=== PATIENT | female | born 1965 | race Caucasian/White ===

== ENCOUNTER → 2016-11-01 | Outpatient (CLI) | payer OTHER | LOC: EXRD 09:56 | DX: M54.5 Low back pain (principal); M47.816 Spondylosis without myelopathy or radiculopathy, lumbar region; M85.80 Other specified disorders of bone density and structure, unspecified site | CPT/HCPCS: 72100 ==

== ENCOUNTER → 2016-11-28 | Outpatient (CLI) | payer OTHER | LOC: MAMO 08:30 | DX: Z12.31 Encounter for screening mammogram for malignant neoplasm of breast (principal) | CPT/HCPCS: G0202 ==

== ENCOUNTER → 2021-01-05 | Outpatient (CLI) | payer OTHER ==
[~2021-01-05] MED LIST: B12 ACTIVE1000 MCG PO; CALCIUM500 M1 PO; CYCLOBENZAPRINE10 MG PO; ERYTHROMYCIN O3.5 GM OS; FIBER CAPS PO; HEALTHY HEART1 EACH PO; LEVOTHYROXINE75 MCG PO; MACROBID 100 M100 MG PO; MILLIPRED DP5 MG PO; MIRALAX17 GM PO; NAPROXEN250 MG PO; NORCO 5-325 TA1 EACH PO; OMEPRAZOLE40 MG PO; RITUXIMAB IV; STOOL SOFTENER100 M1 PO; TEMAZEPAM22.5 MG PO; TESSALON PERLE100 MG PO; TURMERIC1 GM PO; VASCEPA1 GM PO; VITAMIN C1000 M2 PO; VITAMIN E PO; WOMEN'S DAILY1 EACH PO; ZETIA10 MG PO; ZITHROMAX250 MG PO
== END ==
LOC: LAB 15:50
DX: E78.5 Hyperlipidemia, unspecified (principal); I10 Essential (primary) hypertension; E03.9 Hypothyroidism, unspecified; E55.9 Vitamin D deficiency, unspecified
CPT/HCPCS: 36415; 80061; 84439; 84443

== ENCOUNTER → 2021-01-18 | Outpatient (CLI) | payer OTHER | LOC: SLEEP 14:37 | DX: G47.19 Other hypersomnia (principal); G47.33 Obstructive sleep apnea (adult) (pediatric) | CPT/HCPCS: 95810 ==

== ENCOUNTER → 2021-05-27 | Outpatient (CLI) | payer MEDICARE | LOC: MAMO 13:30 | DX: Z12.31 Encounter for screening mammogram for malignant neoplasm of breast (principal) | CPT/HCPCS: 77063; 77067 ==

== ENCOUNTER 2021-06-12 18:35 | Emergency (ER) | payer MEDICARE ==
[2021-06-12 19:25] LABS: HEMOGLOBIN 14.9 gm/dl (12.3-15.3); RED BLOOD COUNT 4.79 M/UL (4.00-5.10); WHITE BLOOD COUNT 3.9 K/UL (4.5-11.0)
[2021-06-12 20:01] LABS: BUN/CREATININE RATIO 18 (0-10)
[2021-06-12] MEDS ORDERED: FLORASTOR250 MG PO (22:17)
[2021-06-12] MEDS ORDERED: ZOFRAN ODT 4 MG4 MG SL (22:17)
[2021-06-12] MEDS ORDERED: AUGMENTIN 875-1 EACH PO (22:17)
== END 2021-06-12 22:50 | disposition home or self-care (01) ==
LOC: ER1 18:35
PROVIDERS: Physician Assistant Medical
DX: K52.9 Noninfective gastroenteritis and colitis, unspecified (principal); F17.200 Nicotine dependence, unspecified, uncomplicated; Z20.822 Contact with and (suspected) exposure to COVID-19
CPT/HCPCS: 0240U; 80053; 81001; 83605; 83690; 85025; 87040; 96374; 96375; 99284; J2270; J2405; J7030; Q9967

== ENCOUNTER → 2021-08-10 | Outpatient (CLI) | payer MEDICARE ==
[~2021-08-10] MED LIST changes: +AUGMENTIN 875-1 EACH PO; +FLORASTOR250 MG PO; +ZOFRAN ODT 4 MG4 MG SL
[2021-08-10 16:32] LABS: HEMOGLOBIN 14.4 gm/dl (12.3-15.3); RED BLOOD COUNT 4.78 M/UL (4.00-5.10); WHITE BLOOD COUNT 7.9 K/UL (4.5-11.0)
[2021-08-10 16:42] LABS: URINE CREATININE 39.2 mg/dL; URINE TOTAL PROTEIN < 5 mg/dl
[2021-08-12 08:14] LABS: A/G RATIO 2.2 (1.2-2.2); ALKALINE PHOSPHATASE, S 70 IU/L (44-121); ALT (SGPT) 20 IU/L (0-32); AST (SGOT) 20 IU/L (0-40); BILIRUBIN, TOTAL <0.2 mg/dL (0.0-1.2); BUN 13 mg/dL (6-24); BUN/CREATININE RATIO 18 (9-23); CALCIUM, SERUM 9.6 mg/dL (8.7-10.2); CARBON DIOXIDE, TOTAL 24 mmol/L (20-29); CHLORIDE, SERUM 103 mmol/L (96-106); CREATININE, SERUM 0.73 mg/dL (0.57-1.00); EGFR IF AFRICN AM 106 (>59); EGFR IF NONAFRICN AM 92 (>59); GLOBULIN, TOTAL 2.2 g/dL (1.5-4.5); GLUCOSE, SERUM 79 mg/dL (65-99); POTASSIUM, SERUM 4.6 mmol/L (3.5-5.2); PROTEIN, TOTAL, SERUM 7.1 g/dL (6.0-8.5); SODIUM, SERUM 143 mmol/L (134-144)
[2021-08-12 10:16] LABS: C-REACTIVE PROTEIN, QUANT 3 mg/L (0-10); COMPLEMENT C3, SERUM 142 mg/dL (82-167); COMPLEMENT C4, SERUM 26 mg/dL (12-38); IMMUNOGLOBULIN A, QN, SERUM 129 mg/dL (87-352); IMMUNOGLOBULIN G, QN, SERUM 618 mg/dL (586-1602); IMMUNOGLOBULIN M, QN, SERUM 19 mg/dL (26-217)
== END ==
LOC: LAB 15:14
PROVIDERS: Internal Medicine Rheumatology
DX: R80.9 Proteinuria, unspecified (principal); M32.9 Systemic lupus erythematosus, unspecified; M06.00 Rheumatoid arthritis without rheumatoid factor, unspecified site; Z51.81 Encounter for therapeutic drug level monitoring
CPT/HCPCS: 36415; 80053; 80069; 81001; 82570; 82784; 84100; 84156; 85025; 85652; 86038; 86140; 86160; 86162; 86255

== ENCOUNTER → 2021-12-10 | Outpatient (CLI) | payer MEDICARE ==
[2021-12-10 12:49] LABS: HEMOGLOBIN 14.2 gm/dl (12.3-15.3); RED BLOOD COUNT 4.67 M/UL (4.00-5.10); WHITE BLOOD COUNT 9.2 K/UL (4.5-11.0)
[2021-12-10 15:52] LABS: BUN/CREATININE RATIO 16 (0-10)
[2021-12-11 08:16] LABS: VITAMIN D, 25-HYDROXY 51.3 ng/mL (30.0-100.0)
[2021-12-11 10:16] LABS: MICROALB/CREAT RATIO <10 (0-29)
[2021-12-11 15:16] LABS: DSDNA CRITHIDIA LUCILIAE IFA Negative (Negative)
== END ==
LOC: LAB 11:15
PROVIDERS: Internal Medicine Rheumatology; Nurse Practitioner Family
DX: Z13.1 Encounter for screening for diabetes mellitus (principal); Z00.00 Encounter for general adult medical examination without abnormal findings; M06.00 Rheumatoid arthritis without rheumatoid factor, unspecified site; R80.9 Proteinuria, unspecified; I10 Essential (primary) hypertension; M51.36 Other intervertebral disc degeneration, lumbar region; E78.5 Hyperlipidemia, unspecified; K21.9 Gastro-esophageal reflux disease without esophagitis; J30.9 Allergic rhinitis, unspecified; E55.9 Vitamin D deficiency, unspecified; R53.83 Other fatigue; E53.8 Deficiency of other specified B group vitamins; E78.1 Pure hyperglyceridemia; E03.9 Hypothyroidism, unspecified
CPT/HCPCS: 36415; 80053; 80061; 81001; 82043; 82570; 82607; 83036; 84156; 84439; 84443; 85025; 85652; 86140; 86160; 86225; 86255

== ENCOUNTER → 2021-12-24 | Day surgery (SDC) | payer MEDICARE | END | disposition home or self-care (01) | LOC: OR 05:42 | DX: Z12.11 Encounter for screening for malignant neoplasm of colon (principal); I10 Essential (primary) hypertension; E66.9 Obesity, unspecified; E03.9 Hypothyroidism, unspecified; K21.9 Gastro-esophageal reflux disease without esophagitis; E11.9 Type 2 diabetes mellitus without complications; F17.200 Nicotine dependence, unspecified, uncomplicated; Z86.010 Personal history of colon polyps; Z88.8 Allergy status to other drugs, medicaments and biological substances | CPT/HCPCS: J2704 ==